=== PATIENT | female | born 1990 | race Caucasian/White ===

== ENCOUNTER 2020-05-29 19:47 | Observation (INO) | payer BC, SELFPAY ==
[2020-05-29 20:23] VITALS: BP 104/68; PULSE 83
[2020-05-29 20:30] VITALS: BP 106/64; PULSE 77
[2020-05-29 20:33] LABS: Add Urine Microscopic? YES; Appearance Urine Cloudy (Clear); Bacteria Urine Trace /hpf; Bilirubin Urine Negative (Negative); Blood Urine Negative (Negative); Color Urine Straw (Yellow); Glucose Urine UA Negative (Negative); Ketones Urine Negative (Negative); Leukocyte Esterase Ur Negative LEU/UL (Negative); Mucus Urine Few /lpf; Nitrate Urine Negative (Negative); Protein Urine Negative (Negative); RBC Urine 0-2 /hpf (0-2); Specific Grav Ur 1.012 (1.001-1.035); Squamous Epithelial Cell Urine Rare /hpf (Few); Urobilinogen Urine Negative mg/dL (<2.0); WBC Urine 0-3 /hpf
[2020-05-29 20:45] VITALS: BP 109/51; PULSE 69
[2020-05-29 21:00] VITALS: BP 114/71; PULSE 79
[2020-05-29] MEDS: TERBUTALINE SULFATE 1 MG/ML VIAL 0.25 MG SUB-Q (21:15)
[2020-05-29 22:04] VITALS: BMI 27.5
--- NOTE | 2020-05-29 22:04 | OBADM ---
This patient, Mckenzie Marsh, admitted to the OB room OB Post 113 for observation. Patient/family oriented to hospital policies and general routines including ID bracelet, bed and alarms, visiting hours, pain management, procedures, bathroom and other care routines, personal items, smoking policy, room service/diet, and visiting hours. Patient/Family are encouraged to report perceived risks to care and to ask questions if they do not understand what they are told or what they should do.
[2020-05-29 22:14] VITALS: TEMP 36.7
--- NOTE | 2020-06-06 11:50 | PM.OBTRLD ---
OB - Triage/Final Diagnosis Visit Information Reason for evaluation: threatened labor Comments/Additional reasons for admission: I have assessed the risk for this patient, Mckenzie Marsh, and determined that she would benefit from observation care. Evaluation Laboratory results: Laboratory Tests 05/29/20 20:19 Urine Color Straw Urine Appearance Cloudy H Urine pH 7.0 Ur Specific [place] 1.012 Urine Protein Negative Urine Glucose (UA) Negative Urine Ketones Negative Ur Blood (Man) Negative Urine Nitrate Negative Urine Bilirubin Negative Urine Urobilinogen Negative Leukocyte Esterase Rfl Negative Urine RBC 0-2 Urine WBC 0-3 Ur Squamous Epith Cells Rare Urine Bacteria Trace Urine Mucus Few H
== END 2020-05-29 22:25 | disposition home or self-care (01) ==
PROVIDERS: Admitting Provider Obstetrics & Gynecology; Visit Provider Obstetrics & Gynecology
DX: O47.03 False labor before 37 completed weeks of gestation, third trimester (principal); Z3A.33 33 weeks gestation of pregnancy
CPT/HCPCS: 81001; 96372; G0378; G0379; J3105

== ENCOUNTER 2020-06-05 21:49 | Observation (INO) | payer BC, SELFPAY ==
--- NOTE | 2020-06-05 21:49 | OBADM ---
This patient, Mckenzie Marsh, admitted to the OB room Labor/Delivery/Recovery 105 for observation. Patient/family oriented to hospital policies and general routines including ID bracelet, bed and alarms, visiting hours, pain management, procedures, bathroom and other care routines, personal items, smoking policy, room service/diet, and visiting hours. Patient/Family are encouraged to report perceived risks to care and to ask questions if they do not understand what they are told or what they should do.
[2020-06-05 22:01] VITALS: BP 117/77; PULSE 88; RESP 20; TEMP 36.6
[2020-06-05 22:24] LABS: Add Urine Microscopic? NO; Appearance Urine Clear (Clear); Bilirubin Urine Negative (Negative); Blood Urine Negative (Negative); Color Urine Straw (Yellow); Glucose Urine UA Negative (Negative); Ketones Urine Negative (Negative); Leukocyte Esterase Ur Negative LEU/UL (Negative); Nitrate Urine Negative (Negative); Protein Urine Negative (Negative); Specific Grav Ur 1.005 (1.001-1.035); Urobilinogen Urine Negative mg/dL (<2.0)
[2020-06-05 22:27] VITALS: BMI 27.5
--- NOTE | 2020-06-08 09:15 | PM.OBTRLD ---
OB - Triage/Final Diagnosis Visit Information Comments/Additional reasons for admission: I have assessed the risk for this patient, Mckenzie Marhs, and determined that she would benefit from observation care. Evaluation Laboratory results: Laboratory Tests 06/05/20 22:14 Urine Color Straw Urine Appearance Clear Urine pH 7.0 Ur Specific [place] 1.005 Urine Protein Negative Urine Glucose (UA) Negative Urine Ketones Negative Ur Blood (Man) Negative Urine Nitrate Negative Urine Bilirubin Negative Urine Urobilinogen Negative Leukocyte Esterase Rfl Negative Final Diagnosis (1) contractions: Code(s): O47.9 - False labor, unspecified Status: Acute
== END 2020-06-05 23:00 | disposition home or self-care (01) ==
PROVIDERS: Admitting Provider Obstetrics & Gynecology; Visit Provider Obstetrics & Gynecology
DX: O47.03 False labor before 37 completed weeks of gestation, third trimester (principal); Z3A.34 34 weeks gestation of pregnancy
CPT/HCPCS: 81003; G0378; G0379

== ENCOUNTER 2020-07-02 10:39 | Observation (INO) | payer BC, SELFPAY ==
[2020-07-02 10:49] VITALS: BP 123/88; PULSE 95
[2020-07-02 11:01] VITALS: BP 120/84; PULSE 89
[2020-07-02 11:16] VITALS: BP 113/77; PULSE 91
[2020-07-02 11:32] VITALS: BP 95/75; PULSE 96
[2020-07-02 11:45] VITALS: BP 110/76; PULSE 76; TEMP 36.4
[2020-07-02 12:01] VITALS: BP 106/74; PULSE 119
--- NOTE | 2020-07-09 08:23 | PM.OBTRLD ---
OB - Triage/Final Diagnosis Visit Information Comments/Additional reasons for admission: I have assessed the risk for this patient, Mckenzie Marsh, and determined that she would benefit from observation care. Final Diagnosis (1) contractions: Code(s): O47.9 - False labor, unspecified Status: Acute
== END 2020-07-02 12:39 | disposition home or self-care (01) ==
LOC: ANHLDR 12:22
PROVIDERS: Admitting Provider Obstetrics & Gynecology; Visit Provider Obstetrics & Gynecology
DX: O47.1 False labor at or after 37 completed weeks of gestation (principal); Z3A.38 38 weeks gestation of pregnancy
CPT/HCPCS: G0378; G0379

== ENCOUNTER 2020-07-07 02:15 | Inpatient (IN) | payer BC, SELFPAY ==
[2020-07-07] VITALS (56 sets, daily range): BP systolic 89–125; BP diastolic 49–83; PULSE 53–88; RESP 18–20; TEMP 36.1–37.2; O2SAT 98–100; BMI 27.5
--- OUTSIDE RECORDS SUMMARY | 2020-07-07 02:34 | XMS_ITS | Encounter Summary ---
:1990 Author Reason for Visit OB Ultrasound Assessment and Plan None recorded.Discussion Note: None recorded.Patient educational handouts: No information available. Plan of Care Reminders Provider Appointments None ? ? recorded. Lab None ? ? recorded. Referral None ? ? recorded. Procedures None ? ? recorded. Surgeries None ? ? recorded. Imaging None ? ? recorded. Medications Name Start Date ? ? folic acid ? Notes: PNV Medications Administered None recorded. Vitals None recorded. Results Lab Results None recorded. Allergies Code Code System Name Reaction Severity Onset NKDA ? ? ? Problems Name Status Onset Date Source ? Active 12/17/2019 ? Procedures Date Name Performed by ? ? Other Information not zohra labbarbara Notes: 2010 right hand surgery possib le cyst ? Appendectomy Information not zohra smith Notes: 200804/29/2020 US, Obstetric, Maternal [facility] (One Call Scheduling) Evaluation + Anatomy [facility]
--- OUTSIDE RECORDS SUMMARY | 2020-07-07 02:34 | XMS_ITS | Encounter Summary ---
:1990 Author Reason for Visit return OB visit Assessment and Plan 1. Routine care 2. Uterine size for dates discre pancy ? US, obstetric, mater nal evaluation + anatomy Discussion Note: None recorded.Patient educational handouts: No information available. Plan of Care Reminders Provider Appointments None recorded. ? ? Lab None recorded. ? ? Referral None recorded. ? ? Procedures None recorded. ? ? Surgeries None recorded. ? ? Imaging US, Obstetric, [facility] Maternal 04/29/2020 [facility] (One Ca ll Evaluation + Scheduling) Anatomy Medications Name Start Date ? ? folic acid ? Notes: PNV Medications Administered None recorded. Vitals Height Weight Blood Pressure 5 ft 4 in 164 lbs 118/72 mm[Hg] Results Lab Results None recorded. Allergies Code Code System Name Reaction Severity Onset NKDA ? ? ? Problems Name Status Onset Date Source ? Active 12/17/2019 ? Procedures
--- OUTSIDE RECORDS SUMMARY | 2020-07-07 02:34 | XMS_ITS ---
:1990 Author Care Team Providers Name Role Phone Chary Hull Primary Care Provider Unavailable Allergies Code Code System Name Reaction Severity Status Onset NKDA ? Medications Name Status Start Date Stop Date ? ? acetaminophen 300 mg-codeine 30 mg tablet Completed ? 02/14/2019 TK 1 T PO Q 6 H amoxicillin 500 mg capsule Completed ? 09/29 azelastine 0.05 % eye drops Completed ? 09/18 INT 1 GTT INTO OU BID cephalexin 500 mg capsule Completed ? 2019 TK 1 C PO QD folic acid Active ? Not available ibuprofen 600 mg tablet Completed ? 04/04/19 TK 1 T PO Q 6 H PRF CRAMPING nitrofurantoin monohydrate/macrocrystals 100 mg capsule Complete d 03/18/2020 04/14/2020 TK 1 C PO Q 12 H FOR 7 DAYS penicillin V potassium 500 mg tablet Completed ? 12/17/2019 TK 1 T PO Q 6 H TAT Notes: PNV Problems Name Status Onset Date Source ? Unknown 10/27/2018 ? Active 12/17/2019 ? Procedures Date Name Performed by ? ? Other Information not avai lable Notes: 2010 right hand surgery possib le cyst ? Appendectomy Information not avai lable Notes: 200812/17/2019 US, Obstetric, 1St Trimester [facility] (One Call Scheduling) [address] [facility]
--- OUTSIDE RECORDS SUMMARY | 2020-07-07 02:34 | XMS_ITS | Encounter Summary ---
:1990 Author Reason for Visit return OB visit Assessment and Plan 1. Routine care Discussion Note: None recorded.Patient educational handouts: No information available. Plan of Care Reminders Provider Appointments None ? ? recorded. Lab None ? ? recorded. Referral None ? ? recorded. Procedures None ? ? recorded. Surgeries None ? ? recorded. Imaging None ? ? recorded. Medications Name Start Date ? ? folic acid ? Notes: PNV Medications Administered None recorded. Vitals Weight Blood Pressure 164.8 lbs 112/68 mm[Hg] Results Lab Results None recorded. Allergies Code Code System Name Reaction Severity Onset NKDA ? ? ? Problems Name Status Onset Date Source ? Active 12/17/2019 ? Procedures Date Name Performed by ? ? Other Information not zohra smith Notes: 2010 right hand surgery possib le cyst ? Appendectomy Information not zohra smith Notes:
--- OUTSIDE RECORDS SUMMARY | 2020-07-07 02:34 | XMS_ITS | Encounter Summary ---
:1990 Author Reason for Visit return OB visit Assessment and Plan 1. Routine care Discussion Note: None recorded.Patient educational handouts: No information available. Plan of Care Reminders Provider Appointments Established Yasir Melvin, Patient 10 07/08/2020 8:10AM ? Procedure 10 Coreen naif Shieldslizzette, 07/09/2020 6:00AM Lab None recorded. ? ? Referral None recorded. ? ? Procedures None recorded. ? ? Surgeries None recorded. ? ? Imaging None recorded. ? ? Medications Name Start Date ? ? folic acid 12/17/2019 Zoloft 50 mg tablet ? Take 1 tablet every day by oral route. Notes: PNV/ tums prn Medications Administered None recorded. Vitals Height Weight Blood Pressure 5 ft 4 in 166 lbs 114/72 mm[Hg] Results Lab Results None recorded. Allergies Code Code System Name Reaction Severity Onset NKDA ? ? ? Problems Name Status Onset Date Source ? Active
--- OUTSIDE RECORDS SUMMARY | 2020-07-07 02:34 | XMS_ITS | Encounter Summary ---
[...] Weight Blood Pressure 5 ft 4 in 172 lbs 112/70 mm[Hg] Results Lab Results None recorded. Allergies Code Code System Name Reaction Severity Onset NKDA ? ? ? Problems Name Status Onset Date Source ? Active
--- OUTSIDE RECORDS SUMMARY | 2020-07-07 02:34 | XMS_ITS | Encounter Summary ---
:1990 Author Reason for Visit return OB visit Assessment and Plan 1. Routine care ? streptococcus group B, cul ture, unspecified specimen Discussion Note: None recorded.Patient educational handouts: No information available. Plan of Care Reminders Provider Appointments Established Den brittany Melvin, Patient 10 07/08/2020 8:10AM ? Procedure 10 Coreen Melvin, 07/09/2020 6:00AM Lab Streptococcus [facility] Group B, Culture, 06/10/2020 Hospital (Lab) Unspecified Specimen Referral None recorded. ? ? Procedures None recorded. ? ? Surgeries None recorded. ? ? Imaging None recorded. ? ? Medications Name Start Date ? ? folic acid 12/17/2019 Zoloft 50 mg tablet ? Take 1 tablet every day by oral route. Notes: PNV/ tums prn Medications Administered None recorded. Vitals Height Weight Blood Pressure 5 ft 4 in 170 lbs 112/68 mm[Hg] Results Lab Results Date Name Specimen Result Interpretation Description Value Range Status Address ? 06/10/2020 Streptococcus THROAT ? Strep Gp negative negativ e Final L
--- OUTSIDE RECORDS SUMMARY | 2020-07-07 02:34 | XMS_ITS | Encounter Summary ---
:1990 Author Reason for Visit return OB visit Assessment and Plan 1. Routine care ? glucose tolerance test, ge banneral, 1-hour - nonfasting OB ? HIV (1+2) Ab screen, serum ? hemoglobin + hematocrit, b lood ? parvovirus B19 igg Ab, ser um ? rubella igg Ab screen, ser um Discussion Note: None recorded.Patient educational handouts: No information available. Plan of Care Reminders Provider Appointments None recorded. ? ? Lab Glucose In-House Results Tolerance Test, 04/14/2020 Gestational, 1-Hour ? HIV (1+2) Ab In-H ouse Results Screen, Serum 04/14/2020 ? Hemoglobin + In-H ouse Results Hematocrit, Blood 04/14/2020 ? Parvovirus B19 In -House Results Igg Ab, Serum 04/14/2020 ? Rubella Igg Ab In -House Results Screen, Serum 04/14/2020 Referral None recorded. ? ? Procedures None recorded. ? ? Surgeries None recorded. ? ? Imaging None recorded. ? ?
--- OUTSIDE RECORDS SUMMARY | 2020-07-07 02:34 | XMS_ITS | Encounter Summary ---
[...] Pressure 5 ft 4 in 166 lbs 114/68 mm[Hg] Results Lab Results None recorded. Allergies Code Code System Name Reaction Severity Onset NKDA ? ? ? Problems Name Status Onset Date Source ? Active 0
--- OUTSIDE RECORDS SUMMARY | 2020-07-07 02:34 | XMS_ITS ---
[...] INTO OU BID cephalexin 500 mg capsule Active ? Not av ailable TK 1 C PO QD folic acid Active 12/17/2019 Not available ibuprofen 600 mg tablet Completed ? 04/04/19 TK 1 T PO Q 6 H PRF CRAMPING nitrofurantoin monohydrate/macrocrystals 100 mg capsule Active ? Not available TK 1 C PO Q 12 H FOR 7 DAYS penicillin V potassium 500 mg tablet Completed ? 12/17/2019 TK 1 T PO Q 6 H TAT Zoloft 50 mg tablet Active ? Not availabl e Take 1 tablet every day by oral route. Notes: PNV/ tums prn Problems Name Status Onset Date Source ? Unknown 10/27/2018 History Active 12/17/2019 History Procedures Date Name Performed by ? ? Other Information not avai lable Notes: right hand surgery 2010 ? Appendectomy Information not avai lable Notes: 2008 Results
--- NOTE | 2020-07-07 02:40 | LDADM ---
This patient, Mckenzie Marsh, was admitted to Labor/Delivery/Recovery 104 on 07/07/20 at 02:15. Plans for labor, pain management and were discussed with patient. Patient/family oriented to hospital policies and general routines including ID bracelet, bed and alarms, visiting hours, pain management, procedures, bathroom and other care routines, personal items, smoking policy, room service/diet and guest tray routines, security routines, and visiting hours. Patient/Family are encouraged to report perceived risks to care and to ask questions if they do not understand what they are told or what they should do. See OBIX for further documentation.
[2020-07-07 02:48] LABS: Basophils Percent Auto 0.4 % (0.2-1.2); Eosinophils Absolute Auto 0.1 K/mm3 (0-0.3); Hematocrit 35.9 % (37.0-47.0); Hemoglobin 11.9 g/dL (12.0-15.0); Immature Granulocyte Absolute 0.14 K/mm3 (0.00-0.031); Immature Granulocyte Percent A 1.3 % (0-0.5); Lymphocytes Absolute Auto 2.36 K/mm3 (0.9-3.2); Lymphocytes Percent Auto 22.5 % (18.3-44.2); Mean Corpuscular HGB Conc 33.1 g/dl (32-36); Mean Corpuscular Hemoglobin 28.7 pg (26-34); Mean Corpuscular Volume 86.5 fl (80-100); Mean Platelet Volume 12.4 fl (7.4-10.4); Monocytes Absolute Auto 0.8 K/mm3 (0.1-0.6); Monocytes Percent Auto 7.5 % (2.6-8.5); Neutrophils Absolute Auto 7.1 K/mm3 (1.3-6.7); Neutrophils Percent Auto 67.3 % (45.5-73.1); Nucleated Red Blood Cells Perc 0.2 % (0.0-0.2); Platelet Count Result 205 k/mm3 (150-375); Red Blood Count 4.15 M/mm3 (4.2-5.4); Red Cell Distribution Width 12.6 % (11.5-14.5); White Blood Count 10.5 K/mm3 (4.5-10.0)
[2020-07-07] MEDS: LACTATED RINGERS 1,000 ML 125 ML IV CONT ×2 (02:49→03:43)
--- NOTE | 2020-07-07 03:18 | P.PNAN_ITS ---
Anes - Eval Pre Procedure Procedure: labor epidural Date/Time: 07/07/20 03:18 Surgeon: angie Pre Op Diagnosis: Leaking fluid Patient Data Age: 30 Gender: F Height: 1.65 m Weight: 75 kg Last Vital Signs Temp 36.5 C 07/07/20 03:00 Pulse 68 07/07/20 03:15 BP 113/76 07/07/20 03:15 Allergies Allergy/AdvReac Type Severity Reaction Status Date / Time No Known Allergies Allergy Verified 06/14/20 15:59 Home Medications Medication Instructions Recorded Confirmed Type PNV cmb#95-ferrous fumarate-FA 1 tablet PO DAILY 02/13/19 06/05/20 History [] folic acid 0.4 mg PO DAILY 06/05/20 06/05/20 History Laboratory Tests 07/07/20 07/07/20 02:42 02:42 WBC 10.5 K/mm3 H K/mm3 (4.5-10.0) RBC 4.15 M/mm3 L M/mm3 (4.2-5.4) Hgb 11.9 g/dL L g/dL (12.0-15.0) Hct 35.9 % L % (37.0-47.0) MCV 86.5 fl fl (80-100) MCH 28.7 pg pg (26-34) MCHC 33.1 g/dl g/dl (32-36) RDW 12.6 % % (11.5-14.5) Plt Count 205 k/mm3 k/mm3 (150-375) MPV 12.4 fl H fl (7.4-10.4) Immature Gran % (Auto) 1.3 % H % (0-0.5) Neut % (Auto) 67.3 % % (45.5-73.1) Lymph % (Auto) 22.5 % % (18.3-44.2) [place] % (Auto) 7.5 % % (2.6-8.5) Eos % (Auto) 1.0 % % (0-4.4) Baso % (Auto) 0.4 % % (0.2-1.2) Lymph # (Auto) 2.36 K/mm3 K/mm3 (0.9-3.2) [place] # (Auto) 0.8 K/mm3 H K/mm3 (0.1-0.6) Eos # (Auto) 0.1 K/mm3 K/mm3 (0-0.3) Baso # (Auto) 0.0 K/mm3 K/mm3 (0.0-0.1) Abs Immat Gran (auto) 0.14 K/mm3 H K/mm3 (0.00-0.031) Absolute Neuts (auto) 7.1 K/mm3 H K/mm3 (1.3-6.7) Absolute Nucleated RBC 0.0 K/mm3 K/mm3 (0.0-0.012) Nucleated RBC % 0.2 % % (0.0-0.2) RPR Pending Patient hx anesthesia problems: none Family hx anesthesia problems: none PMFSH Family History Family History Other Unknown family medical history Social History Social History Smoking status: Never smoker Second hand tobacco smoke exposure: No Substance use: never Spiritual care concerns: No Exam Day of Procedure 07/07/20 03:18
[2020-07-07 06:39] LABS: Rapid Plasma Reagin Non-Reactive (NonReactive)
[2020-07-07] MEDS: OXYTOCIN 30 UNITS/NS 500 ML 30 UNITS/500 ML BAG 999 UNITS IV CONT (06:42)
--- NOTE | 2020-07-07 07:01 | WPDHPUPDATE1 ---
History and Physical Update Update Date/Time: 07/07/20 07:01 History and Physical has been reviewed, including an updated exam of the patient. There are NO changes in the patient's condition. Risks, benefits, and alternatives have been discussed and questions answered. Patient agrees to proceed with procedure.
--- NOTE | 2020-07-07 07:02 | WPDOBADMIT ---
Obstetrics - Admit Note Admission Note: record reviewed. No pertinent additions to the history and/or any subsequent changes in the physical findings that are not consistent with the expected course of the were found. Additions to the history and/or subsequent changes in the physical findings follow. None.
--- NOTE | 2020-07-07 07:02 | PM.OBPRVD ---
OB - Delivery Note Procedure Route of delivery: Episiotomy description: None Laceration Description: Perineal - 2nd Degree Delivery repair: chromic Specimen: Yes Quantitative Blood Loss (ml): 200 Anesthesia type: Epidural Disposition: floor Narrative: Patient was prepped and draped in usual manner for this procedure. Maternal expulsive efforts readily delivered vertex which was section naso-oropharynx rest baby was delivered as. Cord cut and placenta delivered spontaneously. Cervix vagina vulva were inspected with second-degree laceration noted. This was approximated in 2 0 chromic on the vaginal tissue deep tissue and subcuticular layer. Uterus was well contracted no significant bleeding. At this point seizure was considered terminated. Baby was having some breathing difficulty and was taken to the nursery for further evaluation. [place] Baby Weeks of gestation at delivery: 38 Infant gender: Female
[2020-07-07] MEDS: OXYTOCIN 30 UNITS/NS 500 ML 30 UNITS/500 ML BAG 125 UNITS IV CONT (07:16)
[2020-07-07] MEDS: DOCUSATE SODIUM 100 MG CAPSULE PO (11:40)
[2020-07-07] MEDS: IBUPROFEN 600 MG TABLET PO ×2 (11:40→23:55)
[2020-07-07] MEDS: SERTRALINE HCL 50 MG TABLET PO (11:40)
--- NOTE | 2020-07-07 14:12 | PC.NURSE ---
Addendum entered by Erna Bonds RN 07/07/20 14:14: admitted to room 281 at 1127. Original Note: Patient transferred to post room # 281 per wheelchair. Support person present. Oriented to unit, room, information board, rooming in, admission packet and security measures. Patient verbalizes understanding.
[2020-07-08 00:01] VITALS: BP 109/71; PULSE 74; RESP 16; TEMP 36.9; O2SAT 97
[2020-07-08 04:13] VITALS: BP 101/69; PULSE 79; RESP 16; TEMP 36.8; O2SAT 98
[2020-07-08 05:31] LABS: Hematocrit 28.2 % (37.0-47.0)
--- NOTE | 2020-07-08 07:01 | P.DS_ITS ---
DS: Admitting Diagnosis Admitting Diagnosis Admitting Diagnosis: OB - DS: Summary OB Procedures : None OB Procedures Intrapartum: Spontaneous Vag Delivery OB Procedures: : None Time Spent with Patient Time attestation: Total time spent providing and/or coordinating discharge services: DS: Data Data Completed and Pending Pending studies at discharge: Pending at discharge 07/07/20 09:20 Surgical [PTH] Routine Labs on day of discharge: Labs from last 24 hours 07/08/20 04:16 Hgb 9.0 L Hct 28.2 L Discharge Plan Discharge Discharging Clinician: Sandro Melvin Anticipated Discharge Date/Time: 07/08/20 12:00 Patient Disposition: Home, Self-Care Activity: as tolerated Diet: as tolerated Patient Instructions: Antibiotic Form Stand Alone Forms: General Discharge Information Follow-up/Referrals: Sandro Melvin MD [Physician] - 3 Weeks Discharge Medications: New ibuprofen 600 mg Tablet 600 mg PO Q6H PRN (Reason: Cramping) Qty: 30 RF: 0 Continued PNV cmb#95-ferrous fumarate-FA [] 28 mg iron- 800 mcg Tablet 1 tablet PO DAILY RF: 0 sertraline 50 mg tablet 50 mg DAILY RF: 0 Discontinued folic acid 400 mcg Tablet 0.4 mg PO DAILY RF: 0 Date of admission: 07/07/20 02:15 Primary Care Provider: PHYSICIAN,PHARMACEUTICAL PLANT OPERATOR Admitting Provider: Sandro Melvin Attending physician on admission: Sandro Mlevin Condition: Stable
[2020-07-08 08:40] VITALS: BP 108/77; PULSE 75; RESP 16; TEMP 36.4; O2SAT 99
[2020-07-08 09:00] VITALS: PULSE 75; RESP 16; O2SAT 99
[2020-07-08] MEDS: MULTIVIT/MIN/PREN/FOL AC/IRON TABLET 1 TAB PO (10:28)
[2020-07-08] MEDS: POLYSACCHARIDE IRON COMPLEX 150 MG CAPSULE PO (10:28)
[2020-07-08] MEDS: DOCUSATE SODIUM 100 MG CAPSULE PO (10:29)
[2020-07-08] MEDS: SERTRALINE HCL 50 MG TABLET PO (10:29)
[2020-07-08] MEDS: IBUPROFEN 600 MG TABLET PO (10:30)
--- NOTE | 2020-07-08 13:45 | WPDANLDPN2 ---
Anes-Prog Note L&D Date/Time: 07/08/20 13:45 Comfortable throughout: labor and delivery Neuraxial method: epidural Epidural/Spinal procedure site: clean & non-tender Neuro status: Neuro function grossly intact. Cardiovascular status: normal Respiratory status: normal Airway patency: baseline Mental status: baseline Post-Op hydration status: normal Vital Signs: Last Vital Signs Temp 36.4 C L 07/08/20 08:40 Pulse 75 07/08/20 08:40 Resp 16 07/08/20 08:40 BP 108/77 07/08/20 08:40 Pulse Ox 99 07/08/20 08:40 Pain score (VAS): 0 Post-procedural complaints: none Patient feedback: Patient satisfied with anesthetic care.
[2020-07-09 10:46] VITALS: BP 120/72; PULSE 86; RESP 20; TEMP 37; O2SAT 99
== END 2020-07-08 12:57 | disposition home or self-care (01) | DRG 807 ==
LOC: ANHLDR 03:56 → ANHOB2 11:44
PROVIDERS: Admitting Provider Obstetrics & Gynecology; Visit Provider Obstetrics & Gynecology
DX: O70.1 Second degree perineal laceration during delivery (principal); Z37.0 Single live birth; Z3A.38 38 weeks gestation of pregnancy
CPT/HCPCS: 36415; 84112; 85014; 85018; 85025; 86592; 86850; 86900; 86901; 88307; A9270; J2590; J2795; J7120